=== PATIENT | female | born 1975 | race Caucasian/White ===

== ENCOUNTER 2021-01-15 09:35 | Outpatient (CLI) | payer OTHER | END 2021-01-15 10:14 | disposition home or self-care (01) | LOC: MAMO-SONO 09:35 | PROVIDERS: ATTEND Internal Medicine Endocrinology, Diabetes & Metabolism | DX: Z12.31 Encounter for screening mammogram for malignant neoplasm of breast (principal); N61.0 Mastitis without abscess; N64.4 Mastodynia; E03.8 Other specified hypothyroidism ==